=== PATIENT | female | born 1945 | race Caucasian/White ===

== ENCOUNTER 2023-03-11 13:40 | Inpatient (IN) ==
[2023-03-11] MEDS: ACETAMINOPHEN 500 MG/50 ML BAG IV ONE (14:42)
[2023-03-11 14:50] LABS: ABG Methemoglobin 0.3 % (0.4-1.5); Total Hemoglobin 14.7 gm/Dl (12.0-15.0); VBG Base Excess -3 (-2-3); VBG HCO3 21.2 mmol/L (24.0-28.0); VBG Oxygen Saturation 87.1 % (40.0-70.0); VBG PCO2 35.8 mmHg (41.0-51.0); VBG PH 7.39 U (7.32-7.42); VBG Total CO2 22.3 mmol/L (25.0-29.0)
[2023-03-11 14:58] LABS: Basophils # (Auto) 0.01 K/mcL (0.00-0.30); Basophils % (Auto) 0.1 % (0.0-2.0); Eosinophils # (Auto) 0.01 K/mcL (0.00-0.70); Eosinophils % (Auto) 0.1 % (0.0-7.0); Hematocrit 40.3 % (34.1-44.9); Hemoglobin 13.4 g/dL (11.2-15.7); Lymphocytes # (Auto) 0.23 K/mcL (1.50-4.80); Lymphocytes % (Auto) 2.7 % (15.5-49.0); Mean Cell Volume 88.8 fL (80.0-100.0); Mean Corpuscular HGB Conc 33.3 g/dL (31.0-36.0); Monocytes # (Auto) 0.14 K/mcL (0.10-0.90); Monocytes % (Auto) 1.6 % (1.0-12.0); Neutrophils % (Auto) 95.3 % (38.0-78.0); Platelet Count 170 K/mcL (140-440); RBC 4.54 M/mcL (3.59-5.38); Red Cell Distribution Width 12.2 % (11.5-14.5); WBC 8.6 K/mcL (4.5-11.0)
[2023-03-11] MEDS: LEVOFLOXACIN 750 MG/150 ML BAG IV ONE (14:58)
[2023-03-11 15:09] LABS: ALT/SGPT 27 U/L (<40); AST/SGOT 26 U/L (<32); Albumin 4.4 gm/dL (3.2-5.2); Albumin/Globulin Ratio 1.8 (1.0-2.3); Alkaline Phosphatase 57 U/L (39-117); Bilirubin,Total 0.6 mg/dL (0.1-1.0); Blood Urea Nitrogen 14 mg/dL (8-23); Carbon Dioxide 22 mmol/L (22-30); Chloride 100 mmol/L (96-108); Globulin 2.4 gm/dL (2.2-3.7); Glomerular Filtration Rate 70; Glucose 152 mg/dL (70-105)
[2023-03-11] MEDS: 0.9 % SODIUM CHLORIDE 1,000 ML IV ONE (15:30)
[2023-03-11 16:18] LABS: proBNP < 36.0 pg/mL (<450.0)
[2023-03-11] MEDS ORDERED: SENNOSIDES 1 TABLET PO PRN (17:56)
[2023-03-11] MEDS ORDERED: MAGNESIUM SULFATE 2 GM/50 ML BAG IV PRN (17:56)
[2023-03-11] MEDS ORDERED: POTASSIUM CHLORIDE 20 MEQ TABLET PO PRN ×2 (17:56)
[2023-03-11] MEDS ORDERED: DEXTROSE 31 GM ORAL.SUSP PO PRN (17:56)
[2023-03-11] MEDS ORDERED: POTASSIUM CHLORIDE 40 MEQ in DEXTROSE 5% IN WATER 500 ML IV PRN (17:56)
[2023-03-11] MEDS ORDERED: DEXTROSE 50% 50 ML VIAL IV PRN (17:56)
[2023-03-11] MEDS ORDERED: ONDANSETRON 4 MG/2 ML VIAL IV PRN (17:56)
[2023-03-11] MEDS ORDERED: IPRATROPIUM/ALBUTEROL 3 ML AMPUL.NEB NEB PRN (17:56)
[2023-03-11] MEDS ORDERED: POLYETHYLENE GLYCOL 3350 17 GM PACKET PO PRN (17:56)
[2023-03-11] MEDS: INSULIN LISPRO 1 UNIT/0.01 ML UNIT SQ SCH (19:37)
[2023-03-11] MEDS: cefTRIAXone 1 GM VIAL IV SCH (19:51)
[2023-03-11] MEDS: 0.9 % SODIUM CHLORIDE 10 ML SYRINGE IV SCH (20:00)
[2023-03-11 20:23] LABS: Appearance,Urine Clear (Clear); Bilirubin,Urine Negative (Negative); Color,Urine Yellow; Culture Indicated,Urine No; Glucose,Urine (UA) Negative (Negative); Ketones,Urine 40 mg/dL (Negative); Leukocyte Esterase,Urine Negative /uL (Negative); Nitrate,Urine Negative (Negative); Protein,Urine Negative (Negative); Specific Gravity,Urine >= 1.030 (1.000-1.035); Urine Blood Negative ery/mcL (Negative); Urobilinogen,Urine Normal
[2023-03-11] MEDS ORDERED: MECLIZINE 25 MG TABLET PO PRN (21:39)
[2023-03-12 05:55] LABS: Basophils # (Auto) 0.01 K/mcL (0.00-0.30); Basophils % (Auto) 0.1 % (0.0-2.0); Eosinophils # (Auto) 0.05 K/mcL (0.00-0.70); Eosinophils % (Auto) 0.5 % (0.0-7.0); Hematocrit 35.8 % (34.1-44.9); Hemoglobin 11.9 g/dL (11.2-15.7); Lymphocytes # (Auto) 0.88 K/mcL (1.50-4.80); Lymphocytes % (Auto) 8.3 % (15.5-49.0); Mean Cell Volume 89.9 fL (80.0-100.0); Mean Corpuscular HGB Conc 33.2 g/dL (31.0-36.0); Mean Platelet Volume 10.6 fL (8.8-12.5); Monocytes # (Auto) 0.82 K/mcL (0.10-0.90); Monocytes % (Auto) 7.7 % (1.0-12.0); Neutrophils % (Auto) 83.2 % (38.0-78.0); Platelet Count 169 K/mcL (140-440); RBC 3.98 M/mcL (3.59-5.38); Red Cell Distribution Width 12.3 % (11.5-14.5); WBC 10.6 K/mcL (4.5-11.0)
[2023-03-12 06:24] LABS: ALT/SGPT 17 U/L (<40); AST/SGOT 20 U/L (<32); Albumin 3.9 gm/dL (3.2-5.2); Albumin/Globulin Ratio 1.9 (1.0-2.3); Alkaline Phosphatase 46 U/L (39-117); Bilirubin,Direct < 0.2 mg/dL (0-0.3); Bilirubin,Total 0.8 mg/dL (0.1-1.0); Blood Urea Nitrogen 13 mg/dL (8-23); Calcium 8.7 mg/dL (8.6-10.4); Carbon Dioxide 23 mmol/L (22-30); Chloride 102 mmol/L (96-108); Globulin 2.1 gm/dL (2.2-3.7); Glomerular Filtration Rate 70; Glucose 116 mg/dL (70-105); Lactate Dehydrogenase 193 U/L (135-225); Phosphorous 2.7 mg/dL (2.5-4.5); Triglycerides 81 mg/dL (<150); Uric Acid 4.2 mg/dL (2.5-8.0)
[2023-03-12] MEDS: ENOXAPARIN 40 MG/0.4 ML SYRINGE SQ SCH (08:32)
[2023-03-12] MEDS: AZITHROMYCIN 500 MG in DEXTROSE 5% IN WATER 250 ML IV SCH (08:32)
[2023-03-12] MEDS: LEVOTHYROXINE 125 MCG TABLET PO SCH (08:32)
[2023-03-12] MEDS: RABEPRAZOLE 20 MG PO SCH (08:33)
[2023-03-12] MEDS: ACETAMINOPHEN 325 MG TABLET PO PRN (10:38)
[2023-03-13 06:39] LABS: ALT/SGPT 12 U/L (<40); AST/SGOT 17 U/L (<32); Albumin 3.6 gm/dL (3.2-5.2); Albumin/Globulin Ratio 1.3 (1.0-2.3); Alkaline Phosphatase 50 U/L (39-117); Bilirubin,Direct < 0.2 mg/dL (0-0.3); Bilirubin,Total 0.5 mg/dL (0.1-1.0); Blood Urea Nitrogen 13 mg/dL (8-23); Calcium 9.1 mg/dL (8.6-10.4); Carbon Dioxide 21 mmol/L (22-30); Chloride 103 mmol/L (96-108); Globulin 2.7 gm/dL (2.2-3.7); Glomerular Filtration Rate 70; Glucose 111 mg/dL (70-105); Lactate Dehydrogenase 185 U/L (135-225); Phosphorous 2.5 mg/dL (2.5-4.5); Triglycerides 107 mg/dL (<150); Uric Acid 4.1 mg/dL (2.5-8.0)
== END 2023-03-13 11:00 | disposition home or self-care (01) | DRG 862 ==
LOC: ED 13:40 → ICU 17:40 → MEDSUR 03-12 12:49
PROVIDERS: ADMIT Internal Medicine; ATTEND Internal Medicine